=== PATIENT | female | born 1960 | race Caucasian/White ===

== ENCOUNTER → 2024-01-07 07:59 | Outpatient (REF) | payer BC, SELFPAY ==
[2024-01-07 09:43] LABS: % Basophils 1.6 % (0-2); % Eosinophils 2.2 % (0-6); % Lymphocytes 33.9 % (20.5-51.1); % Monocytes 8.9 % (1.7-9.3); % Neutrophils 53.4 % (42.2-75.2); Absolute Basophils 0.1 10^3/uL (0-0.2); Absolute Eosinophils 0.1 10^3/uL (0-0.7); Absolute Lymphocytes 1.5 10^3/uL (1.2-3.4); Absolute Monocytes 0.4 10^3/uL (0.1-0.6); Absolute Neutrophils 2.4 10^3/uL (1.4-6.5); Hematocrit 39.6 % (37.0-47.0); Mean Corp Hgb Conc. 32.8 g/dL (33.0-37.0); Mean Corpuscular Hgb 28.8 pg (27.0-31.0); Mean Corpuscular Volume 87.6 fL (81.0-99.0); Mean Platelet Volume 9.6 fL (7.4-10.4); Nucleated Red Blood Cells % 0 %; Platelet Count 342 10^3/uL (130-400); Red Blood Cell Count 4.52 10^6/uL (4.20-5.40); Red Cell Dist. Width 13.4 % (11.5-14.5); White Blood Cell Count 4.5 10^3/uL (4.8-10.8)
[2024-01-07 10:19] LABS: ALT (SGPT) 47 U/L (0-35); AST (SGOT) 40 U/L (14-36); Albumin 4.3 g/dl (3.5-5.0); Alkaline Phosphatase 61 U/L (38-126); Blood Urea Nitrogen 14 mg/dl (7-17); Calcium 9.7 mg/dl (8.4-10.2); Carbon Dioxide 26 mmol/L (22-30); Chloride 102 mmol/L (98-107); Glucose 76 mg/dl (70-99); HDL Cholesterol 74 mg/dl; LDL Cholesterol, Calculated 130 mg/dl; Potassium 4.4 mmol/L (3.5-5.1); Sodium 140 mmol/L (135-145); Total Bilirubin 0.5 mg/dl (0.2-1.3); Total Cholesterol 219 mg/dl (50-199); Total Protein 6.6 g/dl (6.3-8.2); Triglyceride 76 mg/dl (10-149); Very Low Density Lipoprotein 15 mg/dl (0-30); eGFR > 60.00
[2024-01-07 11:17] LABS: Free T4 1.25 ng/dl (0.78-2.19)
== END ==
LOC: REG 07:59
PROVIDERS: ATTENDING PHYSICIAN Family Medicine
DX: E03.9 Hypothyroidism, unspecified (principal); R53.82 Chronic fatigue, unspecified; D50.9 Iron deficiency anemia, unspecified; R79.89 Other specified abnormal findings of blood chemistry; Z12.39 Encounter for other screening for malignant neoplasm of breast; E78.5 Hyperlipidemia, unspecified
CPT/HCPCS: 36415; 80053; 80061; 84439; 84443; 85025

== ENCOUNTER → 2024-04-01 06:51 | Outpatient (REF) | payer BC, SELFPAY | LOC: RAD 06:51 | PROVIDERS: ATTENDING PHYSICIAN Nurse Practitioner Family; FAMILY PHYSICIAN Family Medicine | DX: R10.32 Left lower quadrant pain (principal) | CPT/HCPCS: 74178; Q9967 ==

== ENCOUNTER 2024-04-05 22:01 | Emergency (ER) | payer BC, SELFPAY ==
[2024-04-05 22:04] VITALS: BP 168/101
[2024-04-05 22:20] LABS: % Basophils 1.8 % (0-2); % Eosinophils 2.8 % (0-6); % Immature Granulocytes 0.3 % (0-0.5); % Lymphocytes 44.3 % (20.5-51.1); % Monocytes 11.2 % (1.7-9.3); % Neutrophils 39.6 % (42.2-75.2); Absolute Basophils 0.1 10^3/uL (0-0.2); Absolute Eosinophils 0.1 10^3/uL (0-0.7); Absolute Lymphocytes 1.7 10^3/uL (1.2-3.4); Absolute Monocytes 0.4 10^3/uL (0.1-0.6); Absolute Neutrophils 1.6 10^3/uL (1.4-6.5); Hematocrit 38.1 % (37.0-47.0); Hemoglobin 12.6 g/dL (12.0-16.0); Mean Corp Hgb Conc. 33.1 g/dL (33.0-37.0); Mean Corpuscular Hgb 28.3 pg (27.0-31.0); Mean Corpuscular Volume 85.4 fL (81.0-99.0); Mean Platelet Volume 9.5 fL (7.4-10.4); Nucleated Red Blood Cells % 0 %; Platelet Count 222 10^3/uL (130-400); Red Blood Cell Count 4.46 10^6/uL (4.20-5.40); Red Cell Dist. Width 13.4 % (11.5-14.5); White Blood Cell Count 3.9 10^3/uL (4.8-10.8)
[2024-04-05 22:32] LABS: ALT (SGPT) 23 U/L (0-35); AST (SGOT) 29 U/L (14-36); Albumin 4.1 g/dl (3.5-5.0); Alkaline Phosphatase 72 U/L (38-126); Blood Urea Nitrogen 12 mg/dl (7-17); Calcium 9.2 mg/dl (8.4-10.2); Carbon Dioxide 28 mmol/L (22-30); Chloride 102 mmol/L (98-107); Glucose 98 mg/dl (70-99); Potassium 3.5 mmol/L (3.5-5.1); Sodium 137 mmol/L (135-145); Total Bilirubin 0.3 mg/dl (0.2-1.3); Total Protein 6.4 g/dl (6.3-8.2); eGFR > 60.00
--- NOTE | 2024-04-05 23:17 | ED.GENMED ---
History of Present Illness
General
Chief Complaint: Abdominal Pain
Source: patient
Exam Limitations: none
Time Seen by Provider: 04/05/24 23:00
Nursing documentation reviewed up to this point in time: agreed with
History of Present Illness
History of Present Illness:
63-year-old female presents emergency department due to left flank pain and constipation. She was sent for CAT scan by her primary care that showed constipation. She has not had a bowel movement in 24 hours. Her left flank pain continues. She
started using lidocaine cream on for her pain, and developed a rash in her left flank on Saturday.
Past History
Past History
ED Past Medical History: Hypothyroidism
ED Past Surgical History: Gynecological (tubal ligation) and Other (gastric sleeve)
Social History
Tobacco: Non-smoker
Alcohol: None
Drug: None
Personal:
Living: with family
Review of Systems
Review of Systems
Allergies reviewed?: Yes
All Other Systems: Not applicable
Constitutional: Reports no symptoms
EENT: Reports no symptoms
Respiratory: Reports no symptoms
Cardiac: Reports no symptoms
ABD/GI: Reports constipated
: Reports no symptoms
Musculoskeletal: Reports no symptoms
Skin: Reports itching and rash
Neurological: Reports no symptoms
Endocrine: Reports no symptoms
Hematologic/Lymphatic: Reports no symptoms
Psychiatric: Reports no symptoms
Phy Exam
Physical Exam
Physical Exam:
Physical Exam
General: no apparent distress, not acutely ill
Neck: supple. no meningeal signs. normal posterior pharynx
Heart: s1/s2 regular rate and rhythm, no murmur. equal radial
pulses.
HEENT: Pupils equal round reactive to light, EOMI
Lungs: no acute respiratory distress. clear bilaterally
Abdomen: normal bowel sounds. not tender. no CVAT
Neuro: alert and oriented. no focal neurological deficits cranial nerves II through XII intact
Skin: Dermatomal vesicular rash left flank
Psychiatric: well kept. interactive and cooperative
Extremities: no edema. no calf tenderness. negative homans. good distal pulses
Course
Orders/Labs/Results
Orders:
Orders
04/05/24 22:13
CMP [Comprehensive Metabolic Panel] Urgent
Complete Blood Count/With Diff Urgent
04/05/24 23:14
Obstruct Series W/PA Chest [CR Obstruct Series W/pa Chest] Urgent
Comment:
Reason For Exam: constipation, abdominal pain
04/05/24 23:15
Magnesium Citrate [Citroma] 300 ml PO ONCE ONE
Valacyclovir HCl [Valtrex] 1,000 mg PO STAT STA
Abnormal Lab Results
04/05/24
22:13
WBC 3.9 L 10^3/uL
(4.8-10.8)
Neutrophils % 39.6 L %
(42.2-75.2)
Monocytes % 11.2 H %
(1.7-9.3)
04/05/24 22:13
04/05/24 22:13
Vital Signs
Initial and Last Documented VS:
Initial Vital Signs
Temp Pulse Resp BP Pulse Ox
98.3 F 76 22 168/101 98
04/05/24 22:04 04/05/24 22:04 04/05/24 22:04 04/05/24 22:04 04/05/24 22:04
Last Documented Vital Signs
Temp Pulse Resp BP Pulse Ox
98.3 F 76 22 168/101 98
04/05/24 22:04 04/05/24 22:04 04/05/24 22:04 04/05/24 22:04 04/05/24 22:04
MDM/Problems Addressed
Differential Diagnosis Includes:
Shingles, constipation, bowel obstruction
MDM/Problems Addressed:
63-year-old female with shingles and constipation. Treat with mag citrate and Valtrex. Follow-up with primary care.
*Radiology
Radiology exam reviewed: radiology read reviewed (CT abdomen pelvis 04/01/2024 no acute findings, large amount of fecal matter throughout colon, abdominal x-ray shows constipation, no signs of bowel obstruction)
*Pulse Oximetry
Patient hypoxic: no
*Critical Care Note
Total Time (30-74mins, 75-104mins- exclusive of procedures): Not Applicable
Data Reviewed
Review of Other/Old Records Reveals: Radiology Studies (CT abdomen pelvis 04/01/2024 no acute findings)
Source: records
Patient Management
Social determinants of health affecting care: Living situation and Strong social support
Escalation/DeEscalation of care consider admission/obs:
Admit not indicated
ED Attending Note
-
Portions of this chart may have been created with voice recognition software.� Occasional wrong word or��sound alike� substitutions may have occurred due to the inherent limitations of voice recognition software.
Discharge Plan
Departure
Patient Disposition: Home (Routine Discharge)
Date of Disposition: 04/06/24
Time of Disposition: 00:05
Patient with high blood pressure during this ER visit?: Yes
Condition: Good
Discharge Problem:
Shingles, Constipation
Instructions: Constipation, Adult (DC), Shingles, BLOOD PRESSURE
Prescriptions:
New
valacyclovir [Valtrex] 1 gram tablet
1,000 mg PO TID Qty: 29 0RF
Interventions
Interventions:
*Risk Screen - Suicide Last Done: 04/05/24 22:04
*General Assessment Last Done: 04/05/24 23:35
*Neglect/Abuse Screening Last Done: 04/05/24 22:04
*ED COVID-19 Vaccine History Last Done: 04/05/24 23:35
Discharge Date and Time
Print Language: MALDIVIAN
[2024-04-05] MEDS: VALTREX 1000 MG PO (23:33)
[2024-04-05 23:35] VITALS: BMI 31.4
[2024-04-06 00:15] VITALS: BP 166/94
--- NOTE | 2024-04-06 00:24 | EDRN ---
Pt given mag citrate to take at home per Dr Wells
== END 2024-04-06 00:26 | disposition home or self-care (01) ==
LOC: EMR 22:01
PROVIDERS: EMERGENCY PHYSICIAN Emergency Medicine; FAMILY PHYSICIAN Family Medicine
DX: B02.9 Zoster without complications (principal); K59.00 Constipation, unspecified; E03.9 Hypothyroidism, unspecified; Z98.84 Bariatric surgery status
CPT/HCPCS: 99284; 74022; 80053; 85025

== ENCOUNTER → 2024-09-01 07:46 | Outpatient (REF) | payer BC, SELFPAY ==
[2024-09-01 08:36] LABS: % Eosinophils 2.3 % (0-6); % Monocytes 10.1 % (1.7-9.3); % Neutrophils 37.6 % (42.2-75.2); Absolute Eosinophils 0.1 10^3/uL (0-0.7); Absolute Lymphocytes 1.9 10^3/uL (1.2-3.4); Absolute Monocytes 0.4 10^3/uL (0.1-0.6); Absolute Neutrophils 1.5 10^3/uL (1.4-6.5); Hematocrit 37.8 % (37.0-47.0); Hemoglobin 12.1 g/dL (12.0-16.0); Mean Corpuscular Hgb 27.4 pg (27.0-31.0); Mean Corpuscular Volume 85.7 fL (81.0-99.0); Mean Platelet Volume 9.6 fL (7.4-10.4); Nucleated Red Blood Cells % 0 %; Platelet Count 258 10^3/uL (130-400); Red Blood Cell Count 4.41 10^6/uL (4.20-5.40); Red Cell Dist. Width 14.1 % (11.5-14.5); White Blood Cell Count 3.9 10^3/uL (4.8-10.8)
[2024-09-01 11:28] LABS: ALT (SGPT) 32 U/L (0-35); AST (SGOT) 23 U/L (14-36); Albumin 3.9 g/dl (3.5-5.0); Alkaline Phosphatase 68 U/L (38-126); Blood Urea Nitrogen 9 mg/dl (7-17); Calcium 9.6 mg/dl (8.4-10.2); Carbon Dioxide 29 mmol/L (22-30); Chloride 106 mmol/L (98-107); Glucose 81 mg/dl (70-99); HDL Cholesterol 65 mg/dl; LDL Cholesterol, Calculated 110 mg/dl; Potassium 3.9 mmol/L (3.5-5.1); Sodium 139 mmol/L (135-145); Total Bilirubin 0.5 mg/dl (0.2-1.3); Total Cholesterol 191 mg/dl (50-199); Total Protein 6.2 g/dl (6.3-8.2); Triglyceride 82 mg/dl (10-149); Very Low Density Lipoprotein 16 mg/dl (0-30); eGFR > 60.00
[2024-09-01 13:47] LABS: Free T4 2.16 ng/dl (0.78-2.19)
[2024-09-01 14:02] LABS: TSH < 0.02 uIU/ml (0.47-4.68)
== END ==
LOC: REG 07:46
PROVIDERS: ATTENDING PHYSICIAN Family Medicine
DX: D50.9 Iron deficiency anemia, unspecified (principal); E86.0 Dehydration; D64.9 Anemia, unspecified; E78.49 Other hyperlipidemia; E03.9 Hypothyroidism, unspecified
CPT/HCPCS: 36415; 80053; 80061; 84439; 84443; 85025